=== PATIENT | male | born 1980 | race Two or more races ===

== ENCOUNTER 2023-08-26 09:45 | Inpatient (IN) | payer BC ==
[~2023-08-26] VITALS: Ht 182.9 cm; Wt 107.5 kg
[2023-08-26] MEDS ORDERED: TOPROL XL50 M1 (14:20)
[2023-08-31] MEDS ORDERED: CEFTRIAXONE SODIUM 2,000 MG VIAL ONE (10:51)
[2023-08-31] MEDS ORDERED: METRONIDAZOLE/SODIUM CHLORIDE 500 MG/100 ML PIGGYBACK IV ONE ×2 (10:51→12:00)
[2023-08-31] MEDS ORDERED: LIDOCAINE HCL/EPINEPHRINE 20 ML VIAL IJ ONE (12:00)
[2023-08-31] MEDS ORDERED: CEFTRIAXONE SODIUM 2,000 MG VIAL IV ONE (12:00)
[2023-08-31] MEDS ORDERED: BUPIVACAINE HCL 30 ML VIAL IJ ONE (12:00)
[2023-08-31] MEDS ORDERED: ONDANSETRON HCL 2 MG/ML VIAL IV PRN (13:15)
[2023-08-31] MEDS ORDERED: MORPHINE SULFATE 4 MG/ML VIAL IV PRN (13:15)
[2023-08-31] MEDS ORDERED: RINGERS SOLUTION,LACTATED 1,000 ML IV SCH (13:15)
[2023-08-31] MEDS ORDERED: OxyCODONE HCL 5 MG TABLET (ROXICODONE) PO PRN (13:15)
[2023-08-31] MEDS ORDERED: DEXTROSE 50 % IN WATER 0.5 G/ML DISP.SYRIN IV PRN (13:15)
[2023-08-31] MEDS ORDERED: ACETAMINOPHEN 500 MG GEL..CAP PO SCH (14:00)
[2023-08-31 15:33] LABS: HEMATOCRIT 40.2 % (39.0-48.0); HEMOGLOBIN 13.5 g/dL (13-16.00); MEAN CELL VOLUME 90.2 fL (80.0-100.00); MEAN CORPUSCULAR HEMOGLOBIN 30.3 pg (27.00-32.0); MEAN CORPUSCULAR HGB CONC 33.6 g/dl (32.0-36.0); PLATELET COUNT 288 K/uL (150-450); RED BLOOD COUNT 4.46 M/uL (4.00-6.00)
[2023-08-31 16:05] LABS: ALBUMIN 3.8 gm/dL (3.4-5.0); CALCIUM 8.6 mg/dL (8.5-10.1); GFR 81.55; MAGNESIUM 2.1 mg/dL (1.8-2.4); PHOSPHOROUS 3.7 mg/dL (2.5-4.9); POTASSIUM 4.34 mEq/L (3.5-5.1)
[2023-08-31] MEDS ORDERED: OMEPRAZOLE20 MG (16:09)
[2023-08-31] MEDS ORDERED: ONDANSETRON HCL 2 MG/ML VIAL ONE (16:51)
[2023-08-31] MEDS ORDERED: POLYETHYLENE GLYCOL 3350 17 GM BLIST.PACK PO SCH (17:00)
[2023-08-31] MEDS ORDERED: GABAPENTIN 300 MG CAPSULE PO SCH (17:00)
[2023-08-31] MEDS ORDERED: HYOSCYAMINE SULFATE 0.125 MG TAB.SUBL SL SCH (17:00)
[2023-08-31] MEDS ORDERED: ENALAPRILAT DIHYDRATE 1.25 MG/ML VIAL IV PRN (18:15)
[2023-08-31 19:35] LABS: ABG PH 7.383 (7.35-7.45); ABG pCO2 44.7 mmHg (35-45)
[2023-08-31 19:36] LABS: ABG PO2 63.3 mmHg (80-100); BASE EXCESS 0.6 mmol/l; SaO2 91.5 %; Tco2 27.4 mmol/l; allen test SATISFACTORY; o2 21 %; puncture site RADIAL RIGHT
[2023-08-31] MEDS ORDERED: CELECOXIB 200 MG CAPSULE PO SCH (21:00)
[2023-08-31] MEDS ORDERED: FAMOTIDINE/PF 20 MG/2 ML VIAL IV PUSH SCH (21:00)
[2023-09-01 07:12] LABS: HEMATOCRIT 41.8 % (39.0-48.0); MEAN CELL VOLUME 89.3 fL (80.0-100.00); MEAN CORPUSCULAR HEMOGLOBIN 29.9 pg (27.00-32.0); MEAN CORPUSCULAR HGB CONC 33.5 g/dl (32.0-36.0); PLATELET COUNT 279 K/uL (150-450); RED BLOOD COUNT 4.68 M/uL (4.00-6.00); RED CELL DISTRIBUTION WIDTH 13.6 % (11.5-14.5)
[2023-09-01 07:32] LABS: ALBUMIN 3.5 gm/dL (3.4-5.0); CALCIUM 8.7 mg/dL (8.5-10.1); CREATININE SERUM 0.86 mg/dL (0.70-1.30); GFR 97.06; PHOSPHOROUS 3.7 mg/dL (2.5-4.9); POTASSIUM 3.82 mEq/L (3.5-5.1)
[2023-09-01] MEDS ORDERED: METOPROLOL SUCCINATE 50 MG TAB.SR.24H PO SCH (09:00)
[2023-09-01] MEDS ORDERED: ENOXAPARIN SODIUM 40 MG/0.4 ML SYRINGE SUBCUTANEO SCH (17:00)
[2023-09-02 07:03] LABS: HEMATOCRIT 40.2 % (39.0-48.0); HEMOGLOBIN 13.5 g/dL (13-16.00); MEAN CELL VOLUME 89.7 fL (80.0-100.00); MEAN CORPUSCULAR HEMOGLOBIN 30.2 pg (27.00-32.0); MEAN CORPUSCULAR HGB CONC 33.7 g/dl (32.0-36.0); PLATELET COUNT 253 K/uL (150-450); RED BLOOD COUNT 4.48 M/uL (4.00-6.00); RED CELL DISTRIBUTION WIDTH 13.9 % (11.5-14.5)
[2023-09-02 07:24] LABS: CALCIUM 8.3 mg/dL (8.5-10.1); CREATININE SERUM 0.95 mg/dL (0.70-1.30); GFR 86.12; MAGNESIUM 2.2 mg/dL (1.8-2.4); PHOSPHOROUS 2.7 mg/dL (2.5-4.9); POTASSIUM 4.26 mEq/L (3.5-5.1)
[2023-09-02] MEDS ORDERED: ENOXAPARIN SODIUM 40 MG/0.4 ML SYRINGE SUBCUTANEO SCH (09:00)
[2023-09-03] MEDS ORDERED: PAIN RELIEVER500 MG PO (10:42)
[2023-09-03] MEDS ORDERED: NEURONTIN300 MG PO (10:42)
== END 2023-09-03 12:20 | disposition home or self-care (01) | DRG 330 ==
LOC: SURH 08-31 07:29 → O/R 08-31 07:29 → SURH 08-31 09:45
PROVIDERS: Internal Medicine Geriatric Medicine; ADMIT Surgery; ATTEND Surgery
PROC: 0DBP4ZZ Excision of Rectum, Percutaneous Endoscopic Approach (ICD-10-PCS; 2023-08-31)
PROC: 07BB4ZZ Excision of Mesenteric Lymphatic, Percutaneous Endoscopic Approach (ICD-10-PCS; 2023-08-31)
PROC: 0DJD8ZZ Inspection of Lower Intestinal Tract, Via Natural or Artificial Opening Endoscopic (ICD-10-PCS; 2023-08-31)
PROC: 4A12X4Z Monitoring of Cardiac Electrical Activity, External Approach (ICD-10-PCS; 2023-08-31)
PROC: 3E0F7SF Introduction of Other Gas into Respiratory Tract, Via Natural or Artificial Opening (ICD-10-PCS; 2023-08-31)
PROC: 0DTN4ZZ Resection of Sigmoid Colon, Percutaneous Endoscopic Approach (ICD-10-PCS; principal; 2023-08-31 17:30)
DX: C19 Malignant neoplasm of rectosigmoid junction (principal); K62.5 Hemorrhage of anus and rectum; D49.0 Neoplasm of unspecified behavior of digestive system; R59.0 Localized enlarged lymph nodes; K59.09 Other constipation; I11.9 Hypertensive heart disease without heart failure; G47.30 Sleep apnea, unspecified

== ENCOUNTER 2023-10-08 07:20 | Day surgery (SDC) | payer BC ==
[~2023-10-08 07:20] MED LIST: NEURONTIN300 MG PO; OMEPRAZOLE20 MG; PAIN RELIEVER500 MG PO; TOPROL XL50 M1
[2023-10-08] MEDS ORDERED: TRAM1TAB98 PO (11:02)
[2023-10-08] MEDS ORDERED: HEPARIN SODIUM,PORCINE 500 UNITS/5 ML VIAL IV ONE ×2 (11:17→12:30)
[2023-10-08] MEDS ORDERED: CEFAZOLIN SODIUM 1,000 MG VIAL ONE (11:19)
[2023-10-08] MEDS ORDERED: CEFAZOLIN SODIUM 1,000 MG VIAL IV ONE (12:30)
== END 2023-10-08 15:00 | disposition home or self-care (01) ==
LOC: CIR.AMB 07:20
PROVIDERS: ATTEND Surgery
DX: C18.7 Malignant neoplasm of sigmoid colon (principal)